=== PATIENT | female | born 2000 | race Caucasian/White ===

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

== ENCOUNTER 2019-05-01 21:49 | Emergency (ER) | payer OTHER, SELFPAY ==
--- NOTE | 2019-05-01 21:52 | ED.DIZZY ---
HPI - Dizziness General Chief Complaint: Dizziness Stated Complaint: dizzy, vomiting Time Seen by Provider: 05/01/19 21:51 Source: patient Mode of arrival: ambulatory Limitations: no limitations History of Present Illness HPI Narrative: 18-year-old female nonsmoker and otherwise healthy presents with her friend in the chief complaint of dizziness upon standing and generally feeling unwell over the course of the day. She has been the summer camp an outside and though she feels like she has been eating and drinking enough questions that she might be dehydrated. She denies any fever or chills and has no chest pain, shortness of breath or cough. She denies abdominal pain but feels nauseated. She states when she stands or dizziness worsens and if she is up to long she starts to see spots. Her last menstrual cycle was a few weeks ago and was normal. She denies any dysuria, frequency or urgency. She denies vaginal bleeding or discharge. MD complaint: dizziness and lightheadedness Onset (ago): hour(s) Timing: gradual onset Description: lightheadedness History of similar episodes: No History of trauma: No Severity: mild Relieving factors: rehydration and rest Exacerbating factors: position Associated symptoms: nausea Related Data Previous Rx's Medication Instructions Recorded citalopram 10 mg PO QDAY #30 tab 05/30/16 naproxen [Naprosyn] 500 mg PO BID #20 tab 02/11/17 albuterol sulfate [Ventolin HFA] 2 puff INH QID #1 ea 12/08/17 levonorgestrel 0.15 mg-ethinyl 1 tab PO DAILY #91 each 06/12/18 estradiol 30 mcg tablets,3 mos pack(91) Allergies Allergy/AdvReac Type Severity Reaction Status Date / Time No Known Allergies Allergy Uncoded 06/12/18 09:09 Review of Systems Constitutional Denies chills, Denies fever(s), Denies lethargy and Reports weakness Eyes Denies change in vision, Denies eye discharge, Denies irritation and Denies loss of vision ENT Ears, Nose, Mouth, and Throat: Denies change in voice, Denies neck pain and Denies sore throat Cardiovascular Denies chest pain, Denies irregular heart rhythm, Reports lightheadedness, Denies palpitations, Denies dyspnea, Denies dyspnea on exertion and Denies orthopnea Respiratory Denies cough, Denies dyspnea, Denies dyspnea on exertion and Denies wheezing Gastrointestinal Gastrointestinal: Denies abdominal pain, Denies change in bowel habits, Denies diarrhea and Reports nausea Genitourinary Denies hematuria, Denies flank pain, Denies urinary incontinence and Denies urinary urgency Musculoskeletal Denies neck pain Integumentary/Breasts Denies pruritus, Denies erythema, Denies rash and Denies wounds Neurologic Denies confusion, Denies loss of vision and Reports weakness Psychiatric Denies anxiety, Denies confusion, Denies depression, Denies homicidal ideation and Denies suicidal ideation Endocrine Denies palpitations Hematologic/Lymphatic Denies easy bruising Allergic/Immunologic Denies wheezing [facility] Medical History Hypothyroidism (Chronic 2009) Surgical History No history of previous surgery (Resolved 10/2015) Family History (Updated 04/05/18 @ 15:47 by Marcella Ravi) Grandfather Lung cancer Social History Smoking Status: Never smoker Family History Grandfather Lung cancer Social History Smoking Status: Never smoker Exam Narrative Exam Narrative: GENERAL: 18-year-old female appears stated age, but anxious and clearly not feeling well HEAD: Atraumatic. Normocephalic. No temporal or scalp tenderness. EYES: Pupils equal round and reactive. Extraocular motions intact. No scleral icterus. No injection or drainage. ENT: Dry mucous membranes Nose without bleeding, purulent drainage or septal hematoma. Throat without erythema, tonsillar hypertrophy or exudate. Uvula midline. Airway patent. NECK: Trachea midline. No JVD or lymphadenopathy. Supple, nontender, no meningeal signs. CARDIOVASCULAR: Regular rate and rhythm without murmurs, gallops, or rubs. RESPIRATORY: Clear to auscultation. Breath sounds equal bilaterally. No wheezes, rales, or rhonchi. GASTROINTESTINAL: Abdomen soft, non-tender, nondistended. No hepato-splenomegaly, or palpable masses. No guarding. EXTREMITIES: No clubbing, cyanosis, or edema. No joint tenderness, effusion, or edema noted. BACK: Nontender without deformity or crepitance. No flank tenderness. NEURO: AOx3. SKIN: No rash or erythema. Initial Vital Signs Initial Vital Signs: Vital Signs Temperature 98.2 F 05/01/19 21:54 Pulse Rate 76 05/01/19 21:54 Respiratory Rate 18 05/01/19 21:54 Blood Pressure 115/59 L 05/01/19 21:54 Pulse Oximetry 99 05/01/19 21:54 Course Course Narrative: Patient felt much better after the above-stated therapies Orders Ordered: ED Orders 05/01/19 22:35 Basic Metabolic Panel Stat Complete Blood Count AUTO DIFF Stat Discontinued Medications Sodium Chloride (Normal Saline 0.9%) 1,000 mls @ 1,000 mls/hr IV BOLUS ONE Stop: 05/01/19 23:23 Last Infusion: 05/01/19 23:34 Dose: 0 mls/hr Admin: 05/01/19 22:32 Dose: 1,000 mls/hr Ondansetron HCl (Zofran) 4 mg IV Q4HR PRN PRN Reason: Nausea And Vomiting Last Admin: 05/01/19 22:33 Dose: 4 mg Ondansetron HCl (Zofran Odt Prepack) 1 bottle MISC SEEINSTR ONE Stop: 05/01/19 23:42 Last Admin: 05/01/19 23:42 Dose: 1 bottle Vital Signs - 8 hr 05/01/19 21:54 05/01/19 23:34 Temperature 98.2 F Pulse Rate 76 Pulse Rate [Orthostatic Lying] 56 L Pulse Rate [Orthostatic Sitting] 59 L Pulse Rate [Orthostatic Standing] 61 Respiratory Rate 18 Blood Pressure 115/59 L Blood Pressure [Orthostatic Lying] 108/52 L Blood Pressure [Orthostatic Sitting] 119/66 Blood Pressure [Orthostatic Standing] 126/68 Pulse Oximetry 99 MDM - Dizziness Lab Data Result diagrams: 05/01/19 22:35 05/01/19 22:35 Lab Results 05/01/19 05/01/19 Range/Units 22:35 22:35 WBC 7.8 (4.5-11.0) X10^3/uL RBC 4.61 (4.0-5.2) X10^6/uL Hgb 13.5 (12.0-16.0) g/dL Hct 39.7 (36-46) % MCV 86.2 (80-100) fL MCH 29.4 (26-34) PG MCHC 34.1 (30-36) % RDW 13.1 (11.6-14.8) % Plt Count 250 (150-400) X10^3/uL Neut % (Auto) 60.9 (50-75) % Lymph % (Auto) 28.0 (25-40) % Rush % (Auto) 8.2 (3-14) % Eos % (Auto) 2.5 (2-4) % Baso % (Auto) 0.4 (0-2) % Neut # (Auto) 4800 (9770-6302) /uL Lymph # (Auto) 2200 (8618-4982) /uL Rush # (Auto) 600 (0-900) /uL Eos # (Auto) 200 (0-450) /uL Baso # (Auto) 0 (0-100) /uL Sodium 139 (137-145) mmol/L Potassium 3.7 (3.4-5.1) mmol/L Chloride 104 (98-107) mmol/L Carbon Dioxide 25 (22-32) mmol/L BUN 11 (7-17) mg/dL Creatinine 0.50 L (0.52-1.04) mg/dL Estimated GFR > 60.0 (>60) mL/min BUN/Creatinine Ratio 22.0 (6-22) Glucose 87 (70-100) mg/dL Calcium 9.8 (8.4-10.2) mg/dL Point of Care Testing Test Results Negative Urine Dip Bedside Urine Glucose Negative Bedside Urine Bilirubin - Negative Bedside Urine Ketone - Negative Urine Specific [place] 1.015 Bedside Urine Occult Blood - Negative Bedside Urine pH 8.0 Bedside Urine Protein - Negative Bedside Urine Urobilinogen +/- 1mg Bedside Urine Nitrite - Negative Bedside Urine Leukocytes - Negative Esterase Discharge Plan Departure Patient Disposition: Home Clinical Impression: Acute dehydration Discharge Date/Time: 05/01/19 23:55 Instructions: DI for Dehydration -- Adult Activity Restrictions/Additional Instructions: 1. Drink plenty of fluids with frequent small sips. 2. For the next 24 hours a clear liquid diet is advised. After that please employ a brat diet which would include bananas, rice, apples, toast. 3. Please take medications as directed. 4. Please follow-up with your doctor in the next 1-2 days. Call the office for an appointment. 5. Please return to the emergency Department for any worsening or persistent symptoms, such as increasing pain or fever. Prescriptions: No Action citalopram 10 MG tablet 10 mg PO QDAY Qty: 30 RF: 3 naproxen [Naprosyn] 500 MG tablet 500 mg PO BID Qty: 20 RF: 0 albuterol sulfate [Ventolin HFA] 90 MCG/PUFF HFA aerosol inhaler 2 puff INH QID Qty: 1 RF: 0 levonorgestrel-ethinyl estrad 0.15 mg-30 mcg tablets,dose pack,3 month 1 tab PO DAILY Qty: 91 RF: 0
[2019-05-01 21:54] VITALS: BP 115/59; PULSE 76; RESP 18; TEMP 36.8; O2SAT 99
[2019-05-01] MEDS: SODIUM CHLORIDE 0.9% 1,000 ML 1000 ML IV (22:32)
[2019-05-01] MEDS: ONDANSETRON 4 MG/2 ML INJ IV (22:33)
[2019-05-01 22:49] LABS: Add Manual Diff / Slide Review NO; Basophils Absolute Auto 0 /uL (0-100); Basophils Percent Auto 0.4 % (0-2); Eosinophils Absolute Auto 200 /uL (0-450); Eosinophils Percent Auto 2.5 % (2-4); Hematocrit 39.7 % (36-46); Hemoglobin 13.5 g/dL (12.0-16.0); Lymphocytes Absolute Auto 2200 /uL (1100-4500); Mean Corpuscular HGB Conc 34.1 % (30-36); Mean Corpuscular Hemoglobin 29.4 PG (26-34); Mean Corpuscular Volume 86.2 fL (80-100); Monocytes Absolute Auto 600 /uL (0-900); Monocytes Percent Auto 8.2 % (3-14); Neutrophils Absolute Auto 4800 /uL (1500-7000); Neutrophils Percent Auto 60.9 % (50-75); Platelet Count 250 X10^3/uL (150-400); Red Blood Cell Count 4.61 X10^6/uL (4.0-5.2); Red Cell Distribution Width 13.1 % (11.6-14.8); White Blood Cell Count 7.8 X10^3/uL (4.5-11.0)
[2019-05-01 22:59] LABS: Blood Urea Nitrogen 11 mg/dL (7-17); Calcium 9.8 mg/dL (8.4-10.2); Carbon Dioxide 25 mmol/L (22-32); Chloride 104 mmol/L (98-107); Estimated Glomerular Filt Rate > 60.0 mL/min (>60); Glucose 87 mg/dL (70-100); HEMOLYSIS < 15 (0-50); Potassium 3.7 mmol/L (3.4-5.1); Sodium 139 mmol/L (137-145)
[2019-05-01 23:34] VITALS: BP 108/52; BP 119/66; BP 126/68; PULSE 56; PULSE 59; PULSE 61
[2019-05-01] MEDS: ONDANSETRON 4 MG ODT PREPACK 1 BOTTLE MISC (23:42)
== END 2019-05-01 23:55 | disposition home or self-care (01) ==
PROVIDERS: Emergency Provider Emergency Medicine
DX: E86.0 Dehydration (principal)
CPT/HCPCS: 36591; 80048; 81003; 81025; 85025; 96361; 96374; 99283; 99284; J2405